=== PATIENT | female | born 1970 | race Caucasian/White ===

== ENCOUNTER 2016-03-29 13:51 | Emergency (ER) | payer BC ==
[2016-03-29 14:53] VITALS: BP 134/68
--- NOTE | 2016-05-04 18:31 | UC ---
Jordin Neri Janilya, scribed for Adelaida Torres DO on 03/29/16 at 1554 . Respiratory Complaint HPI - HPI Summary HPI Summary: A 46 y/o female came in to [facility] presenting w/ a gradual onset of constant subjective fever starting 0300 2 days ago. Pt also reports VILLARREAL concentrated in temples, head pressure, chills, nasal congestion, sinus congestion, sore throat, diaphoresis, rashes on shoulder and chest due to sweating. However, pt reports she usually gets rashes of this nature from heat and sweating. Pt denies muscle pain, joint pain, dysuria and other urinary Sx, CP, cough, SOB. - History of Current Complaint Chief Complaint: UCRespiratory Stated Complaint: SINUS ISSUE Hx Obtained From: Patient Hx Last Menstrual Period: one week ago ?: No Onset/Duration: Gradual Onset, Lasting Days, Still Present Timing: Constant Severity Initially: Moderate Severity Currently: Moderate Pain Intensity: 8 Aggravating Factors: Nothing Alleviating Factors: Nothing Associated Signs And Symptoms: Positive: Fever, Chills, URI, Nasal Congestion, Sinus Discomfort. Negative: Dyspnea, Pleuritic Chest Pain - Allergies/Home Medications Allergies/Adverse Reactions: Allergies Allergy/AdvReac Type Severity Reaction Status Date / Time No Known Allergies Allergy Verified 03/29/16 14:53 Home Medications: Home Medications Hormone Pill ? Name 03/29/16 [History] PMH/Surg Hx/FS Hx/Imm Hx Previously Healthy: Yes - Surgical History Surgical History: None - Family History Known Family History: Negative: Cardiac Disease, Hypertension, Diabetes - Social History Lives: With Family Alcohol Use: Occasionally Substance Use Type: None Smoking Status (MU): Former Smoker Review of Systems Constitutional: Fever, Chills Skin: Rash - shoulders and chest, Other - diaphoresis Eyes: Negative ENT: Sore Throat, Other - nasal congestion, sinus congestion Respiratory: Negative Cardiovascular: Negative Gastrointestinal: Negative Genitourinary: Negative Motor: Negative Neurovascular: Negative Musculoskeletal: Negative Neurological: Headache Psychological: Negative All Other Systems Reviewed And Are Negative: Yes Physical Exam Triage Information Reviewed: Yes Appearance: Well-Appearing, No Pain Distress, Well-Nourished Vital Signs: Initial Vital Signs Temp 99.4 F 03/29/16 14:49 Pulse 89 03/29/16 14:49 Resp 18 03/29/16 14:49 BP 134/68 03/29/16 14:49 Pulse Ox 99 03/29/16 14:49 Vital Signs Reviewed: Yes Eyes: Positive: Conjunctiva Clear. Negative: Discharge ENT: Positive: Hearing grossly normal, Pharynx normal, TMs normal. Negative: Pharyngeal erythema, Tonsillar swelling, Muffled/hoarse voice Neck exam: Normal Neck: Positive: Supple Respiratory: Positive: Lungs clear, Normal breath sounds, No respiratory distress, No accessory muscle use Cardiovascular: Positive: RRR, No Murmur Musculoskeletal Exam: Normal Neurological: Positive: Alert, Muscle Tone Normal Psychological Exam: Normal Psychological: Positive: Age Appropriate Behavior Skin Exam: Normal Skin: Positive: Other - warm, dry, normal color UC Diagnostic Evaluation - Laboratory O2 Sat by Pulse Oximetry: 99 Respiratory Course/Dx - Differential Dx/Diagnosis Differential Diagnosis/HQI/PQRI: Influenza, Sinusitis, Other - uri Provider Diagnoses: sinusitis Discharge - Discharge Plan Condition: Stable Disposition: HOME Patient Education Materials: Sinusitis (ED) Referrals: Kenya Spencer MD [Primary Care Provider] - (follow up in 4-5 days) Additional Instructions: TRY USING THE NETTI POT IN THE MORNINGS DISCUSSED. YOU MUST ALWAYS USE CLEAN WATER. REMEMBER, POSTURE IS AN IMPORTANT FACTOR IN SINUS DRAINAGE. MOVE YOUR NECK, BREATHE. The documentation as recorded by the Jordin alexandre Janilya accurately reflects the service I personally performed and the decisions made by , Adelaida Torres DO.
== END 2016-03-29 16:45 | disposition home or self-care (01) ==
LOC: UCEAST 13:51
DX: J32.9 Chronic sinusitis, unspecified (principal); Z87.891 Personal history of nicotine dependence
CPT/HCPCS: 99211; G0463